=== PATIENT | female | born 1950 | race Caucasian/White ===

== ENCOUNTER 2017-05-26 07:57 | Day surgery (SDC) ==
[2017-05-26] MEDS ORDERED: VERSED ONE (09:39)
[2017-05-26] MEDS ORDERED: DIPRIVAN 20 ML VIAL IVP ONE (09:39)
[2017-05-26 11:14] VITALS: BP 174/72; TEMP 97.9
--- NOTE | 2017-05-27 08:55 | OP ---
INDICATIONS FOR PROCEDURE: 66 year old female with a history of Crohn's colitis presents for surveillance exam. She is asymptomatic at this time. MEDICATIONS: SEE ANESTHESIA NOTES. PROCEDURE: COLONOSCOPY SURVEILLANCE BIOPSIES, SNARE POLYPECTOMY. REPORT: The risks, benefits, alternatives and limitations were discussed in detail with the patient. Informed consent was obtained. After adequate sedation was achieved, a digital rectal exam revealed good tone, no masses. The colonoscope was introduced into the rectum and advanced under direct visual guidance to the cecum. The cecum was identified by the appendiceal orifice and IC valve. I then slowly withdrew the scope in circumferential manner and examined the mucosa quite carefully. I looked on the proximal distal sides of the folds and flexures as best as possible. In the right colon starting from the cecum all the way down to the distal transverse there is scaring and several pseudo polyps scattered throughout. This was consistent with prior examines. The left colon was unremarkable all the way down to the proximal rectum here there was a small 4-5mm polyp that I removed by snare technique. No other abnormalities were noted included on retroflex views. There was a small internal hemorrhoid. I then obtained surveillance biopsies from the cecum, the hepatic flexure, proximal transverse, distal transverse, descending sigmoid and rectal areas. The prep was good. Withdraw time with 13 minutes and 8 seconds. The patient tolerated the procedure well with stable vital signs and pulse oximetry throughout. IMPRESSION: 1. No active Crohn's 2. Old scaring and Pseudo polyps in the right colon as described above unchanged from prior years 3. Small diminutive rectal polyp removed RECOMMENDATIONS: 1. Await pathology results 2. If everything is benign I suggest a repeat colonoscopy examination again 2 years for surveillance sooner if there are signs and symptoms to indicate otherwise 3. Will await rectal polyp pathology to confirm benign nature. Also await the biopsies from the rectum that were obtained around the polypectomy site to assure that there is no dysplastic lesions there CC: Dr. Reji DASILVA
== END 2017-05-26 11:28 | disposition home or self-care (01) ==
LOC: SURG 07:57
PROVIDERS: ATTEND Internal Medicine Gastroenterology
DX: Z09 Encounter for follow-up examination after completed treatment for conditions other than malignant neoplasm (principal); Z87.19 Personal history of other diseases of the digestive system; D12.0 Benign neoplasm of cecum; D12.3 Benign neoplasm of transverse colon; D12.4 Benign neoplasm of descending colon; D12.5 Benign neoplasm of sigmoid colon; D12.7 Benign neoplasm of rectosigmoid junction; K51.40 Inflammatory polyps of colon without complications; K64.8 Other hemorrhoids; E11.9 Type 2 diabetes mellitus without complications

== ENCOUNTER 2018-12-30 12:14 | Inpatient (IN) ==
[2018-12-30 13:17] VITALS: BMI 24.8
[2018-12-30] MEDS: NORVASC PO SCH (13:22)
[2018-12-30] MEDS: VASOTEC IV IVP PRN (13:22)
[2018-12-30] MEDS ORDERED: TYLENOL PO PRN (13:54)
[2018-12-30] MEDS ORDERED: VISTARIL INJ IM PRN (13:54)
[2018-12-30] MEDS ORDERED: NITROSTAT SL PRN ×2 (13:54→14:06)
[2018-12-30] MEDS ORDERED: ATROPINE SULFATE PFS IVP PRN (13:54)
[2018-12-30] MEDS ORDERED: NORCO 5-325 PO PRN (14:06)
--- NOTE | 2018-12-30 14:28 | DI ---
Exam: Single view of the chest. Comparison: None available. Reason for exam: Telemetry FINDINGS: No pneumothorax, pleural effusion, or focal consolidation. The cardiac silhouette is prom inent in size. The imaged osseous structures appear grossly unremarkable without acute fracture. Impression: Cardiomegaly without pneumothorax, pleural effusion, or focal airspace consolidation.
[2018-12-30] MEDS: IMURAN PO SCH ×2 (14:42→20:44)
--- NOTE | 2018-12-30 16:20 | CT ---
EXAM: CT of the head with and without contrast History: Dizziness and high blood pressure Comparison: None available. Technique: Multiplanar CT images through the head were obtained with and without the administration of IV contrast Findings: The visualized paranasal sinuses and mastoid air cells are clear in general. No acute nidhi varial abnormalities. Intracranially the ventricular and cisternal spaces are normal in size, shape and configuration for a patient of this age. No dominant mass or midline shift. No hydrocephalous. No acute intracranial hemorrhage or abnormal extraaxial fluid collections. No abnormal contrast enhancement. Impression: No acute intracranial process and no abnormal contrast enhancement.
--- NOTE | 2018-12-30 16:24 | US ---
EXAM: Bilateral carotid artery Doppler History: Dizziness. Technique: Multiple sonographic images through the bilateral internal carotid arteries were obtained . Color duplex Doppler was used to interrogate vascular flow. Findings: The right ICA peak systolic velocity is moderately elevated measuring 126 cm/sec. The right ICA/cca PSV ratio is upper limits of normal at 1.8. The right vertebral artery is patent and demonstrates an tegrade flow. Bermudez scale images demonstrate mild to moderate plaque buildup within the right interna l carotid artery. The left ICA peak systolic velocity is within normal limits measuring 116 cm/sec. The left ICA/cca P SV ratio is normal at 1.4. The left vertebral artery is patent and demonstrates antegrade flow. Gra y scale images demonstrate mild to moderate plaque buildup within the left internal carotid artery. Impression: 1. Moderate, 50-69% hemodynamic stenosis of the right internal carotid artery. 2. No significant hemodynamic stenosis of the left internal carotid artery.
[2018-12-30] MEDS ORDERED: MINOXIDIL PO STA (16:38)
[2018-12-30] MEDS ORDERED: INSULIN DETEMIR 27 UNIT SQ SCH (17:00)
[2018-12-30] MEDS ORDERED: LEVEMIR SUBCUT SCH (17:00)
[2018-12-30] MEDS: AZULFIDINE PO SCH (17:21)
[2018-12-30] MEDS: ZESTRIL PO SCH (20:45)
[2018-12-30] MEDS: ATIVAN PO SCH (20:45)
[2018-12-30] MEDS: ZANAFLEX PO SCH (20:45)
[2018-12-30] MEDS: OMEGA-3 FISH OIL PO SCH (20:46)
[2018-12-30] MEDS ORDERED: NON-FORMULARY MEDICATION (Tizanidine Hcl [Zanaflex] 4 MG) PO SCH (21:00)
[2018-12-30] MEDS ORDERED: NON-FORMULARY MEDICATION (Omega-3 Fatty Acids/Fish Oil [Fish Oil 1,000 Mg Capsule] 1,000 M PO SCH (21:00)
[2018-12-31] MEDS: PRILOSEC PO SCH (05:52)
[2018-12-31] MEDS ORDERED: TORADOL IVP STA (08:44)
[2018-12-31] MEDS ORDERED: DECADRON 4 MG/ML SDV IM STA (08:44)
[2018-12-31] MEDS ORDERED: CALCIUM CARBONATE PO SCH (09:00)
[2018-12-31] MEDS ORDERED: FISH OIL PO SCH (09:00)
[2018-12-31] MEDS ORDERED: OMEGA PO SCH (09:00)
[2018-12-31] MEDS ORDERED: PRILOSEC PO SCH (09:00)
[2018-12-31] MEDS ORDERED: [UNRECOGNIZED DRUG - OTHER] PO SCH (09:00)
[2018-12-31] MEDS ORDERED: ZOCOR PO SCH ×2 (09:00→21:00)
[2018-12-31] MEDS ORDERED: NON-FORMULARY MEDICATION (Lisinopril [Lisinopril] 20 MG) PO SCH (09:00)
[2018-12-31] MEDS ORDERED: LOPRESSOR PO SCH (09:00)
[2018-12-31] MEDS ORDERED: FATTY ACIDS PO SCH (09:00)
[2018-12-31] MEDS ORDERED: VITAMIN D3 PO SCH (09:00)
[2018-12-31] MEDS: ASPIRIN EC PO SCH (09:19)
[2018-12-31] MEDS: IMURAN PO SCH ×3 (09:20→20:43)
[2018-12-31] MEDS: ZESTRIL PO SCH ×2 (09:20→20:42)
[2018-12-31] MEDS: MINOXIDIL PO SCH ×2 (09:20→20:43)
[2018-12-31] MEDS: FOLIC ACID PO SCH (09:20)
[2018-12-31] MEDS: NORVASC PO SCH (09:20)
[2018-12-31] MEDS: AZULFIDINE PO SCH ×2 (09:21→17:39)
[2018-12-31] MEDS: CALCIUM 500 + VIT D 200 MG TABLET PO SCH (09:21)
[2018-12-31] MEDS: LOPRESSOR PO SCH (09:21)
[2018-12-31] MEDS: OMEGA-3 FISH OIL PO SCH ×3 (09:22→20:41)
--- NOTE | 2018-12-31 09:38 | PCM.PROG ---
Attending Provider: ATTENDING PROVIDER: Dr. DORIS ARGUETA DATE OF SERVICE: 12/31/18 SUBJECTIVE: This 68 year old WHITE/ F was hospitalized 12/30/18 with severe hypertension and some complaints related to what looks like cervical radiculopathy. The patient had dizziness, left arm and shoulder pain. She is feeling better. Blood pressure is well-controlled at 140/[address] scan of head with contrast is negative. Hypoglycemia this morning with 27 units but in evening blood sugar reported at 384. REVIEW OF SYSTEMS: CONSTITUTIONAL: No night sweats. No fatigue, malaise, lethargy. No fever or chills. HEENT: Eyes: No visual changes. No eye pain. No eye discharge. ENT: No runny nose. No epistaxis. No sinus pain. No odynophagia. No congestion. RESPIRATORY: No cough, no congestion. No hemoptysis. No shortness of breath. CARDIOVASCULAR: No angina symptoms. No CHF symptoms. No atypical chest pain for CAD. No palpitations. No orthopnea.. GASTROINTESTINAL: No abdominal pain. No nausea or vomiting. No diarrhea or constipation. No hematemesis. No hematochezia. GENITOURINARY: No urgency. No frequency. No dysuria. No hematuria. No obstructive symptoms. No discharge. No pain. No significant abnormal bleeding. MUSCULOSKELETAL: No musculoskeletal pain; no joint swelling. NEUROLOGICAL: Awake, alert, oriented to time, place and person. No headache. No neck pain. No syncope. No seizures. No dizziness. PSYCHIATRIC: Not anxious. No depression. No suicidal thoughts. No homicidal thoughts. SKIN: No rash. No lesions. No wounds. ENDOCRINE: No unexplained weight loss. No weight gain. HEMATOLOGIC/LYMPHATIC: No anemia. No purpura. No petechiae. No prolonged or excessive bleeding. No palpable lymph nodes. PHYSICAL EXAMINATION: GENERAL: The patient is awake, alert and oriented, lying in bed in no distress. VITAL SIGNS: Temperature 97.4 F, Pulse 66, Respiratory Rate 18, BP 140/75, Pulse Ox 98% HEENT: Head normocephalic, atraumatic. Eyes: Extraocular muscles are intact. Pupils are equal, round and reactive to light and accommodation. Ears: No lesions. Nose appeared normal. Throat: No exudate or erythema. NECK: Supple. No JVD, no carotid bruit. No lymphadenopathy or thyromegaly. LUNGS: Clear to auscultation. Percussion note normal. Chest symmetrical. HEART: S1, S2, no S3. No murmurs. No cyanosis or clubbing. No ascites. Pulses: Dorsalis pedis and posterior tibial pulses +1 to +2 both sides. ABDOMEN: Soft. Non-tender. Bowel sounds active. No CVA tenderness. No mass felt. EXTREMITIES: No edema. Full range of motion of all extremities, equal. NEUROLOGIC: Entirely negative. No focal deficit. Cranial nerves II through XII are grossly intact. No headache, no double vision or headache. SKIN: Warm and dry. Intact. Turgor-normal. LYMPHATIC: No palpable lymph nodes/no lymphedema. MUSCULOSKELETAL: Normal joints with no swelling. Muscle tone is normal. LAB REVIEW: 12/31/18 05:01 12/31/18 05:01 12/31/18 05:01: Sodium 140.1, Potassium 4.10, Chloride 101.1, Carbon Dioxide 32.3 H, Anion Gap 10.80, BUN 17.4 H, Creatinine 0.50 L, Estimated GFR (MDRD) 123.00, BUN/Creatinine Ratio 34.80, Glucose 56.7 L D, Calcium 9.96, Total Bilirubin 0.36, AST 30.8, ALT 19.1, Alkaline Phosphatase 60.1, Total Protein 7.38, Albumin 4.21, Globulin 3.17, Albumin/Globulin Ratio 1.32 12/31/18 05:01: WBC 4.76, RBC 4.15 L, Hgb 13.2, Hct 40.5, MCV 97.6, MCH 31.8 H, MCHC 32.6, RDW Coeff of Irvin 13.0, Plt Count 206, Immature Gran % (Auto) 0.0, Neut % (Auto) 37.4, Lymph % (Auto) 47.9, Ferry % (Auto) 12.8 H, Eos % (Auto) 1.3 , Baso % (Auto) 0.6, Immature Gran # (Auto) 0.0, Neut # (Auto) 1.8 L, Lymph # ( Auto) 2.3, Ferry # (Auto) 0.6, Eos # (Auto) 0.1, Baso # (Auto) 0.0 12/30/18 22:07: Total Creatine Kinase 55.2, Troponin I < 0.012 12/30/18 14:10: NT-Pro-B Natriuret Pep 306.000 H 12/30/18 14:10: Sodium 137.5, Potassium 4.24, Chloride 98.9, Carbon Dioxide 31.1 H, Anion Gap 11.74, BUN 11.8, Creatinine 0.51 L, Estimated GFR (MDRD) 120.00, BUN/Creatinine Ratio 23.13, Glucose 249.0 H, Calcium 9.53, Total Bilirubin 0.32, AST 30.9, ALT 20.5, Alkaline Phosphatase 74.1, Total Creatine Kinase 67.2, Troponin I < 0.012, Total Protein 7.39, Albumin 4.17, Globulin 3.22 , Albumin/Globulin Ratio 1.29, TSH 3.790 12/30/18 14:10: WBC 3.97 L, RBC 4.03 L, Hgb 12.9, Hct 39.1, MCV 97.0, MCH 32.0 H , MCHC 33.0, RDW Coeff of Irvin 13.1, Plt Count 186, Immature Gran % (Auto) 0.3, Neut % (Auto) 49.8, Lymph % (Auto) 38.8, Ferry % (Auto) 9.6, Eos % (Auto) 1.0, Baso % (Auto) 0.5, Immature Gran # (Auto) 0.0, Neut # (Auto) 2.0, Lymph # (Auto ) 1.5, Ferry # (Auto) 0.4, Eos # (Auto) 0.0, Baso # (Auto) 0.0 12/30/18 14:10: Free T4 1.02 12/30/18 14:00: Urine Color Yellow, Urine Clarity Clear, Urine pH 6.5, Ur Specific [place] 1.015, Urine Protein 2+, Urine Glucose (UA) 2+, Urine Ketones Negative, Urine Blood 2+, Urine Nitrite Negative, Urine Bilirubin Negative, Urine Urobilinogen 0.2, Ur Leukocyte Esterase Negative, Urine Microscopic RBC 10 -20, Ur Squamous Epith Cells Not present, Urine Mucus Trace ASSESSMENT: . 1. The patient has right moderate carotid stenosis, no lateralizing signs noted. 2. Hypertension controlled. 3. Left shoulder pain, left arm pain likely cervical radiculopathy, will give Toradol IV. PLAN: 1. Echocardiogram done. The patient has cardiomegaly on chest x-ray. 2. Carotid stenosis discussed and non-HDL goal of 100 discussed goal of BP 135/ 85. Minoxidil added to list of medications. 3. Toradol 30 mg IV now. 4. Decadron 1/2 cc. 5. Sliding scale insulin. 6. C-spine x-ray. 7. Minoxidil 2.5 mg twice a day. 8. Levemir 20 units daily. 9. Encouraged the patient to be up and about. Plan and coordination of the patient's care discussed in the presence of Hat Blocking Machine Operator and nurse. CONDITION: Stable SCRIBED BY: CONSTANCE [employer] Forklift Truck Operator scribed while in presence of service performed by Dr. DORIS ARGUETA on 12/31/18 ([id number])
--- NOTE | 2018-12-31 10:13 | DI ---
Exam: Seven views of the cervical spine. Comparison: 09/14/2008. Reason for exam: Pain in left arm and shoulder. FINDINGS: No acute fracture or listhesis. There is multilevel degenerative disease with interverteb ral body disc space height narrowing and osteophyte formation. The prevertebral soft tissues are wit hin normal limits. The dens appears intact. Impression: 1. No acute fracture or listhesis in the cervical spine. 2. Multilevel degenerative disease with intervertebral body disc space height narrowing and osteophy te formation. 3. Preservation of the cervical lordotic curve.
[2018-12-31] MEDS: HUMULIN R SUBCUT PRN ×2 (11:01→20:43)
[2018-12-31] MEDS ORDERED: NON-FORMULARY MEDICATION (Omega-3 Fatty Acids/Fish Oil [Fish Oil 1,000 Mg Capsule] 1,000 M PO SCH (12:00)
--- NOTE | 2018-12-31 14:00 | HP ---
DATE OF SERVICE: 12/30/18 HISTORY OF PRESENT ILLNESS: This 68-year-old White/ female has been feeling dizzy off and on with dull headache off and on. She went to ENT yesterday for roaring in ear. No wax impaction. Feels like having some memory issues. PAST MEDICAL HISTORY: Hypertension Crohn's GERD Hypertension Diabetes mellitus Type 2 Liver cirrhosis Dyslipidemia PAST SURGICAL HISTORY: Left leg Left breast Tonsils Basal cell top of head Eye implant bilaterally REVIEW OF SYSTEMS: CONSTITUTIONAL: No fever, no fatigue. HEENT: No sinus drainage, no sore throat. RESPIRATORY: No cough, no congestion. CARDIOVASCULAR: No atypical chest pain for coronary artery disease. No angina , CHF symptoms, palpitations or shortness of breath. GASTROINTESTINAL: No melena or abdominal pain. No GERD. GENITOURINARY: No hematuria, no polyuria. SAPPHIRE STYLUS GRINDER: No blackout, no dizziness, no headache, no double vision. MUSCULOSKELETAL: No osteoarthritis pain, no joint swelling. ENDOCRINE: Weight gain of 3 lbs. SKIN: Not dry, no rash. PSYCHIATRIC: Anxious. No depression, no suicidal thoughts, no homicidal thoughts. SOCIAL HISTORY: . Retired. Quit smoking times four months on 01/18/19. Occasional alcohol use. Two children. FAMILY HISTORY: Father . Mother - skin cancer. Brother (1) - mental health. Sister (2) living. MEDICATIONS: Azathioprine 50 mg t.i.d. Sulfasalazine 500 mg daily Folic Acid 1.2 mg one daily Omeprazole 20 mg two daily Metoprolol 50 mg one daily Lisinopril 20 mg one daily Simvastatin 40 mg one daily Lorazepam 1 gm one daily h.s. Levemir Flex pen 25 units 27 evening NTG p.r.n. ASA 81 mg one daily Calcium 600 mg with D daily t.i.d. Fish Oil 1000 mg four daily Tizanidine 4 mg one daily Hydrocodone 5/325 one daily ALLERGIES: ETODOLAC, OXYCODONE, RIFAMPIN PHYSICAL EXAMINATION: V/S: Pulse 76, BP 208/94, 02 sat 98%, weight 153.2 lbs. Height 5'6", BMI 24.7. GENERAL APPEARANCE: Oriented times three. HEENT: Normal. NECK: No JVP. Bruit left. RESPIRATORY: Lungs are clear. Decreased breath sounds. CARDIOVASCULAR: S1, S2, no S3, no murmurs. No cyanosis, clubbing. No ascites. GI/ABDOMEN: No tenderness. Bowel sounds are active. EXTREMITIES: edema, pulses +1, equal. SAPPHIRE STYLUS GRINDER: Deep tendon reflexes, sensory, motor and gait all normal. RECTAL/PELVIC: Dr. Tripp 05/28 repeat 2 years. Pelvic: [place] - years ago. Mammogram 04/2018 [facility]. ASSESSMENT: 1. HYPERTENSION/LEFT ARM PAIN/SHOULDER PAIN/DIZZINESS 2. RIGHT-SIDED HERPES ZOSTER RESOLVED. 3. CROHN'S DISEASE 4. GERD 5. HYPERTENSION 6. CATARACT 7. HISTORY OF ALCOHOL DEPENDENCE 8. DIABETES MELLITUS TYPE 2 (8.2) A1C 07-03-18 9. HISTORY OF LIVER CIRRHOSIS 10. BASAL CELL - TOP OF HEAD, DR. PITTS, [place] 11. DYSLIPIDEMIA PLAN: 1. Admit with routine telemetry orders. 2. Carotid scan. 3. CT scan of head with contrast. 4. Echo in a.m. 5. Continue all home medications. 6. Increase Lisinopril 20 mg p.o. b.i.d. 7. Norvasc 5 mg p.o. now and q.a.m. 8. Vasotec 1.25 mg IV now and 6 hourly for blood pressure systolic greater than 160. 9. BNP. 10. T4 and TSH. TIME SPENT: More than 70 minutes. MTDD
[2018-12-31] MEDS ORDERED: LEVEMIR SUBCUT SCH (17:00)
[2018-12-31] MEDS: VASOTEC IV IVP PRN (17:51)
[2018-12-31] MEDS: ZANAFLEX PO SCH (20:42)
[2018-12-31] MEDS: ATIVAN PO SCH (20:43)
[2019-01-01 05:10] VITALS: TEMP 97.7
[2019-01-01] MEDS: PRILOSEC PO SCH (05:42)
[2019-01-01] MEDS: LOPRESSOR PO SCH (08:30)
[2019-01-01] MEDS: ZESTRIL PO SCH (08:31)
[2019-01-01] MEDS: OMEGA-3 FISH OIL PO SCH ×2 (08:31→12:07)
[2019-01-01] MEDS: FOLIC ACID PO SCH (08:31)
[2019-01-01] MEDS: MINOXIDIL PO SCH (08:32)
[2019-01-01] MEDS: AZULFIDINE PO SCH (08:32)
[2019-01-01] MEDS: CALCIUM 500 + VIT D 200 MG TABLET PO SCH (08:32)
[2019-01-01] MEDS: IMURAN PO SCH (08:32)
[2019-01-01] MEDS: ASPIRIN EC PO SCH (08:33)
[2019-01-01] MEDS: NORVASC PO SCH (08:33)
[2019-01-01 10:04] VITALS: BP 180/82
[2019-01-01] MEDS: HUMULIN R SUBCUT PRN (10:54)
--- NOTE | 2019-01-03 13:21 | PN ---
DATE OF SERVICE: 01/01/19 SUBJECTIVE: 68-year-old white female hospitalized with severe hypertension. Also had some nonspecific complaints related to the left arm, left part of the chest with dizziness. The patient was ruled out to have MD or ischemia. Cardiac markers were negative. The patient's condition is stable. She is up and about. Blood pressure systolic is close to 150. The patient has been on Minoxidil and Norvasc , new medications. REVIEW OF SYSTEMS: CONSTITUTIONAL: No night sweats. No fatigue, malaise, lethargy. No fever or chills. HEENT: Eyes: No visual changes. No eye pain. No eye discharge. ENT: No runny nose. No epistaxis. No sinus pain. No sore throat. No odynophagia. No congestion. RESPIRATORY: No cough, no congestion. No hemoptysis. No shortness of breath. CARDIOVASCULAR: No angina symptoms. No CHF symptoms. No atypical chest pain for CAD. No palpitations. No PND. No orthopnea. GASTROINTESTINAL: No abdominal pain. No nausea or vomiting. No diarrhea or constipation. No hematemesis. No hematochezia. GENITOURINARY: No urgency. No frequency. No dysuria. No hematuria. No obstructive symptoms. No discharge. No pain. No significant abnormal bleeding. MUSCULOSKELETAL: No musculoskeletal pain; no joint swelling. NEUROLOGICAL: No headache. No neck pain. No syncope. No seizures. No dizziness. PSYCHIATRIC: Not anxious. No depression. No suicidal thoughts. No homicidal thoughts. SKIN: No rash. No lesions. No wounds. ENDOCRINE: No unexplained weight loss. No weight gain. HEMATOLOGIC/LYMPHATIC: No anemia. No purpura. No petechiae. No prolonged or excessive bleeding. No palpable lymph nodes. PHYSICAL EXAMINATION: VITAL SIGNS: Temperature 97.7, pulse 68, respiratory rate 12, BP 153/73, pulse ox 98%. HEENT: Head normocephalic, atraumatic. Eyes: Extraocular muscles are intact. Pupils are equal, round and reactive to light and accommodation. Ears: No lesions. Nose appeared normal. Throat: No exudate or erythema. NECK: Supple. No JVD, no carotid bruit. No lymphadenopathy or thyromegaly. LUNGS: Clear to auscultation. Percussion note normal. Chest symmetrical. HEART: S1, S2, no S3. No murmurs. No cyanosis or clubbing. No ascites. Pulses: Dorsalis pedis and posterior tibial pulses +1 to +2 bilaterally. ABDOMEN: Soft. Nontender. Bowel sounds active. No CVA tenderness. No mass felt. EXTREMITIES: No edema. Full range of motion of all extremities, equal. NEUROLOGIC: No focal deficit. Cranial nerves II through XII are grossly intact. No headache, no double vision or headache. SKIN: Not dry. Intact. Turgor - normal. LYMPHATIC: No palpable lymph nodes/no lymphedema. MUSCULOSKELETAL: Normal joints with no swelling. Muscle tone is normal. LABS: Hemoglobin 11.4, hematocrit 34, WBC 4,700, normal differential. Creatinine 0.6, BUN 22. ASSESSMENT: 1. HYPERTENSION UNDER CONTROL. 2. LEFT SHOULDER, LEFT ARM PAIN LIKELY FROM CERVICAL RADICULOPATHY, MUSCULOSKELETAL TYPE. 3. CARDIOVASCULAR STATUS STABLE. ECHO WAS DONE THIS MORNING TO SEE THE CARDIOMEGALY SEEN IN HER CHEST X-RAY WITH HISTORY OF HYPERTENSION, SHOWED LVH WITH ENLARGED LA CAVITY OTHERWISE VALVES ARE NORMAL. LV CONTRACTILITY IS NORMAL. CONDITION: Stable. TIME SPENT: More than 30 minutes. Plan and coordination of the patient's care discussed in the presence of nurse. VIDYA
--- NOTE | 2019-01-03 13:59 | DS ---
DATE OF SERVICE: 01/01/19 FINAL DIAGNOSIS: 1. SEVERE HYPERTENSION 2. CERVICAL RADICULOPATHY WITH LEFT ARM AND LEFT SHOULDER PAIN 3. HISTORY OF SMOKING, QUIT 2005 4. HISTORY OF DYSLIPIDEMIA 5. DIABETES MELLITUS 6. HISTORY OF ALCOHOLISM QUIT 4 MONTHS AGO 7. CHRONIC ANEMIA 8. ANXIETY SYNDROME DISCHARGE INSTRUCTIONS: 1. Discharge the patient home. 2. Followup appointment on Thursday morning, four days from now (02/05/19), in the office. MEDICATIONS AT DISCHARGE: Aspirin 81 mg p.o. daily Azathioprine 50 mg p.o. t.i.d. Hydrocodone 5 mg one at bedtime Levemir 27 units in the evening Lisinopril 20 mg p.o. twice a day Lorazepam 1 mg at night Metoprolol 25 mg p.o. daily Prilosec 40 mg p.o. daily Simvastatin 40 mg daily Sulfasalazine 150 mg twice a day Zanaflex 4 mg p.o. at bedtime Nitroglycerin p.r.n. for chest pain Minoxidil 2.5 mg twice a day Norvasc 5 mg p.o. at h.s. DIET INSTRUCTIONS: Heart Healthy Diabetic Diet ACTIVITY: Gradually resume usual activities. SMOKING: Former smoker DISEASE SPECIFIC EDUCATION: Hypertension Medications Diet Alcoholism HOSPITAL COURSE: 68-year-old white female hospitalized with severe hypertension that was noted while she was undergoing cataract surgery. She was sent to the emergency room where blood pressure was noted to be 190. The patient had some left arm discomfort and pain related mostly to musculoskeletal type of finding but she was ruled out to have any RI or ischemia. Hypertension was brought under control initially with Vasotec IV along with Norvasc and Minoxidil. The patient' s condition is stable. She is up and about. Echocardiogram 2D and 'M' Mode showed normal LV contractility, borderline LVH with enlarged LA cavity. The patient was counseled about alcoholism. She quit four months ago. Also she was counseled about DASH diet and low salt diet. Advised to monitor her blood pressure weekly. The patient's blood pressure is stable at time of discharge. Creatinine 0.6, BUN 22, potassium 4, hemoglobin 11.4, hematocrit 34.8. Condition at time of discharge is stable. ADDENDUM: The patient has either Crohn's or ulcerative colitis on Sulfasalazine and Azathioprine. TIME SPENT: More than 60 minutes. [facility]
--- NOTE | 2019-01-03 14:01 | PN ---
CODING FOR BILLING 12/30/18 ADMISSION DAY - LEVEL 5 12/31/18 INTERMEDIATE 01/01/19 DISCHARGE CEDRICK[facility]
--- NOTE | 2019-01-04 09:42 | ECHO2D ---
Date of Exam: 01/01/19 Ordering Physician: DR. DORIS ARGUETA Room #: 120 Reason for Echo: HTN, LEFT ARM PAIN, SHOULDER PAIN, DIZZINESS M-Mode Normal Adult Results LV Dimensions Normal Adult Results AoV Opening excursions >1.6 >1.6 LVEDD-base- 3.5-5.8 4.7 Ao root dimensions 2.0-3.7 2.9 LVESD-base- 3.1-4.6 L. Atrium dimensions 1.9-3.8 4.4 Post. Wall thickness 0.8-1.1 1.2 IV septum (thickness) 0.7-1.2 1.2 Post. Wall excursion 0.72-1.3 NORMAL Septal motion NORMAL Systolic motion R. Ventricular cavity 1.5-2.0 NORMAL LVEF 60% 70% Paradoxical septal wall motion NORMAL 2-D : 2-D M Mode Echocardiogram was performed using apical four chamber and left parasternal long and short axis views. Mitral, tricuspid and aortic valves appear to be normal. Contractility of the left ventricle seems to be normal, so is the cavity size. Enlarged Left atrial cavity size. Aortic root appears to be normal. There is no pericardial effusion. There is no thrombus noted in the left ventricular or left aortic cavity. No mitral valve prolapse noted. M-MODE: MV: NORMAL AV: NORMAL TV: NORMAL PV: CHAMBER SIZE: ENLARGED LEFT ATRIAL CAVITY WALL MOTION: NORMAL PERICARDIUM: NORMAL INTERPRETATION: 1. BORDERLINE LEFT VENTRICULAR HYPERTROPHY WITH ENLARGED LEFT ATRIAL CAVITY 2. NORMAL VALVES 3. NORMAL LEFT VENTRICULAR CONTRACTILITY MTDD
== END 2019-01-01 13:30 | disposition home or self-care (01) | DRG 74 ==
LOC: MEDSURG B 12:14
PROVIDERS: ADMIT Internal Medicine; ATTEND Internal Medicine
DX: M54.12 Radiculopathy, cervical region (principal); K50.90 Crohn's disease, unspecified, without complications; M25.512 Pain in left shoulder; M79.622 Pain in left upper arm; E11.9 Type 2 diabetes mellitus without complications; E78.5 Hyperlipidemia, unspecified; E16.2 Hypoglycemia, unspecified; K21.9 Gastro-esophageal reflux disease without esophagitis; I65.21 Occlusion and stenosis of right carotid artery; D64.9 Anemia, unspecified; F41.9 Anxiety disorder, unspecified; R42 Dizziness and giddiness; R51 Headache
CPT/HCPCS: 36415; 80053; 81001; 82550; 82962; 83880; 84439; 84443; 84484; 85025; 93005; 93010; 99223; 99232; 99239

== ENCOUNTER 2019-03-25 06:16 | Outpatient (CLI) ==
[2019-03-25] MEDS ORDERED: DOBUTAMINE 500 MG-D5W 250 ML 250 ML IV ONE (07:04)
[2019-03-25] MEDS ORDERED: ATROPINE SULFATE PFS ONE (07:04)
--- NOTE | 2019-03-25 10:03 | NM ---
Cardiac Stress Test HISTORY: Chest pain. Hypertension. COMPARISON: None of this type. TECHNIQUE: Resting: The patient was injected with 3.5 mCi of thallium 2001 chloride intravenously after which a "resting" SPECT study of the heart was performed. Stress: The patient was stressed pharmacologically with dobutamine and at the appropriate time injec radha with 25.2 millicuries of 99m technetium Sestamibi (Cardiolite) after which a "stress" SPECT study of the heart was performed. Gated images of the heart were also obtained to assess wall motion and calculate ejection fraction. For details of the stress protocol employed, reference is made to the s eparate report of the performing physician. FINDINGS: The stress perfusion images demonstrate a generally uniform distribution of activity in th e left ventricular myocardium. The resting perfusion images demonstrate no evidence of significant r edistribution/ischemia. The left ventricular ejection fraction (LVEF) is 81%. IMPRESSION: 1. Left ventricular myocardial perfusion is within normal limits. 2. The left ventricular ejection fraction (LVEF) is 81%.
--- NOTE | 2019-03-25 10:27 | ECHOSTRESS ---
Date of Exam: 03/25/19 Ordering Physician: DR. DORIS ARGUETA Reason for Echo: CHEST PAIN, HTN, PAD, DOBUTAMINE STRESS--NO ISCHEMIA M-Mode Normal Adult Results LV Dimensions Normal Adult Results AoV Opening excursions >1.6 LVEDD-base- 3.5-5.8 Ao root dimensions 2.0-3.7 LVESD-base- 3.1-4.6 L. Atrium dimensions 1.9-3.8 Post. Wall thickness 0.8-1.1 IV septum (thickness) 0.7-1.2 Post. Wall excursion 0.72-1.3 Septal motion Systolic motion R. Ventricular cavity 1.5-2.0 LVEF 60% Paradoxical septal wall motion 2-D: NORMAL LEFT VENTRICULAR CONTRACTILITY--RESTING AND WITH DOBUTAMINE INFUSION M-MODE: MV: AV: TV: PV: CHAMBER SIZE: WALL MOTION: NORMAL LEFT VENTRICULAR CONTRACTILITY--RESTING AND WITH DOBUTAMINE INFUSION PERICARDIUM: INTERPRETATION: 1. NORMAL LEFT VENTRICULAR CONTRACTILITY--RESTING AND WITH DOBUTAMINE INFUSION MTDD
--- NOTE | 2019-03-25 10:42 | DOBSTECHST ---
Ordering Physician: DR. DORIS ARGUETA Date of Test: 03/25/19 Reason for Examination: CHEST PAIN, HTN, PAD, SURGICAL CLEARANCE Smoking History: QUIT 2005 Height: 66" Weight: 150 LBS Current Medications: AMLODIPINE, AZATHIOPRINE, CLOPIDOGREL CYANOCOBALAMIN, NORCO , LEVEMIR, LISINOPRIL, LORAZEPAM, METOPROLOL, LONITEN, OMEPRAZOLE, SIMVASTATIN, AZULFIDINE, DYAZIDE Target Heart Rate: 130/153 S-T Segment Stage Time HR BPM BP MMHG Rhythm +/- Elevation Depression Symptoms Control Sitting 65 120/62 SR X NONE Dobutamine 250mg/D5W 5cmg/KG/mn 10cmg/KG/mn 3:00 75 140/60 SR X NONE 15cmg/KG/mn 2:00 105 180/50 SR X NONE 20cmg/KG/mn 2:00 122 180/50 SR X NONE 25cmg/KG/mn :28 130 SR X NONE 30cmg/KG/mn 35cmg/KG/mn 40cmg/KG/mn 3 MIN POST INFUSION z 122 142/60 SR X NONE 10 MIN POST INFUSION z 82 138/54 SR X NONE DURATION OF INFUSION 7:28 MAXIMUM HEART RATE REACHED 130 BPM 97% OXYGEN SATURATION WITH DOBUTAMINE INFUSION Interpretation: 1. NO EVIDENCE OF ISCHEMIA BY ST-T WAVE CHANGES 2. NO CHEST PAIN OR DISCOMFORT 3. NORMAL LEFT VENTRICULAR CONTRACTILITY AT REST AND WITH DOBUTAMINE INFUSION MTDD
== END 2019-03-25 06:17 | disposition home or self-care (01) ==
LOC: CAR 06:16
PROVIDERS: ATTEND Internal Medicine
DX: R07.9 Chest pain, unspecified (principal); I10 Essential (primary) hypertension; I73.9 Peripheral vascular disease, unspecified; Z01.810 Encounter for preprocedural cardiovascular examination